=== PATIENT | male | born 1995 | race Two or more races ===

== ENCOUNTER 2016-11-08 15:40 | Emergency (ER) | payer MEDICAID ==
[~2016-11-08] VITALS: Ht 180.3 cm; Wt 81.6 kg
[2016-11-08 20:22] VITALS: BP 124/86
[2016-11-08] MEDS ORDERED: TETANUS-DIPTH-ACEL PERTUSSIS 0.5ML SYRG IM ONE (21:30)
== END 2016-11-08 21:44 | disposition home or self-care (01) ==
LOC: ER 15:53
DX: S00.93XA Contusion of unspecified part of head, initial encounter (principal); F12.10 Cannabis abuse, uncomplicated; Y08.89XA Assault by other specified means, initial encounter; Y93.89 Activity, other specified; Y99.8 Other external cause status; Y92.89 Other specified places as the place of occurrence of the external cause; Z87.891 Personal history of nicotine dependence; Z87.11 Personal history of peptic ulcer disease; Z88.1 Allergy status to other antibiotic agents; Z23 Encounter for immunization
CPT/HCPCS: 70450; 70486; 90471; 90715

== ENCOUNTER 2017-01-10 19:46 | Emergency (ER) | payer MEDICAID ==
[~2017-01-10] VITALS: Ht 177.8 cm; Wt 89.8 kg
[2017-01-10 20:33] VITALS: BP 144/86
== END 2017-01-10 21:10 | disposition home or self-care (01) ==
LOC: ER 19:51
DX: F41.9 Anxiety disorder, unspecified (principal); M79.602 Pain in left arm; Z88.1 Allergy status to other antibiotic agents; Z87.891 Personal history of nicotine dependence; F12.10 Cannabis abuse, uncomplicated